=== PATIENT | female | born 1995 | race Caucasian/White ===

== ENCOUNTER 2018-08-20 11:56 | Emergency (ER) | payer SELFPAY ==
[2018-08-20 13:00] LABS: #Eosinphils 0.1 thou/uL (0.0-0.7); #Lymphocytes 0.5 thou/uL (1.20-3.40); #Monocytes 0.5 thou/uL (0.11-0.59); #Neutrophils 9.4 thou/uL (1.40-6.50); %Basophils 0.2 % (0.0-1.0); %Eosinophils 0.6 % (0.0-10.0); %Lymphocytes 4.8 % (21.0-51.0); %Monocytes 4.3 % (0.0-10.0); %Neutrophils 90.2 % (42.0-75.0); Hemoglobin 13.7 g/dL (12.0-16.0); Mean Corpuscular HGB CONC 32.4 g/dL (32.0-36.0); Mean Corpuscular Hemoglobin 28.8 pg (27.0-31.0); Mean Corpuscular Volume 88.9 fL (78.0-98.0); Mean Platelet Volume 7.5 fL (7.4-10.4); Platelet Count 274 thou/uL (130-400); RBC Distribution Width 11.3 % (11.5-14.5); Red Blood Cell (RBC) Count 4.76 mill/uL (4.20-5.40); White Blood Cell (WBC) Count 10.5 thou/uL (4.8-10.8)
[2018-08-20 13:18] LABS: BHCG - Serum Negative (NEGATIVE); Pregs Control Background? CLEAR/WHITE (CLR/WHITE); Pregs Control Bar Appear? YES (CONTROL BAR)
[2018-08-20 13:24] LABS: ALT (SGPT) 46 U/L (8-55); AST (SGOT) 18 U/L (5-34); Albumin 4.1 g/dL (3.5-5.0); Alkaline Phosphatase 86 U/L (40-150); Anion Gap 11 mmol/L (10-20); BUN (Urea Nitrogen) 16 mg/dL (7.0-18.7); Bilirubin, Total 0.3 mg/dL (0.2-1.2); Calc. Creatinine Clearance 0 mL/min (70-130); Calcium 9.3 mg/dL (7.8-10.44); Carbon Dioxide 27 mmol/L (22-29); Chloride 103 mmol/L (98-107); Estimated GFR-MDRD 86; Globulin 3.1 g/dL (2.4-3.5); Glucose 108 mg/dL (70-105); Potassium 3.8 mmol/L (3.5-5.1); Protein, Total 7.2 g/dL (6.0-8.3); Sodium 137 mmol/L (136-145)
[2018-08-20] MEDS ORDERED: Acetaminophen 500 MG TAB ONE (13:56)
[2018-08-20] MEDS ORDERED: Ondansetron ODT 4 MG TAB ONE (13:56)
--- NOTE | 2018-08-20 14:38 | ULT ---
ULTRASOUND PELVIC ULTRASOUND TRANSVAGINAL DOPPLER DUPLEX: Date: 08/20/18 HISTORY: 23-year-old female with pelvic pain and vaginal bleeding. TECHNIQUE: Transabdominal transducer used to evaluate intrapelvic contents using the urinary bladder as an acous tic window. Endovaginal transducer used to visualize intrapelvic contents in greater detail. Color fl ow Doppler and Pulsed Doppler spectral waveform analysis of ovaries. FINDINGS: Uterus: Retroverted. 8 x 4.5 x 6 cm. Endometrial stripe: 1.1 cm (11 mm). Right ovary: 5.3 x 2.6 x 3.2 cm. Left ovary: 3.5 x 1.9 x 2.1 cm. Uterine leiomyoma (fibroid): None. Blood flow in both ovaries: Demonstrated. Ovarian cyst (defined as 2 cm or greater): 3.5 x 2.3 x 2.8 cm right. Free fluid in the cul-de-sac: None. IMPRESSION: 1) 11 mm endometrial stripe at the fundus. 2) A 3.5 cm right ovarian cyst. MANUEL Orellana POS: [facility]
== END 2018-08-20 14:46 | disposition home or self-care (01) ==
LOC: EEVIPCON 11:56 → ERS 11:56
DX: N93.9 Abnormal uterine and vaginal bleeding, unspecified (principal)
CPT/HCPCS: 36415; 76856; 80053; 84703; 85025; 86900; 86901; Q0162

== ENCOUNTER 2018-08-30 12:11 | Emergency (ER) | payer MEDICAID, SELFPAY ==
[2018-08-30 13:32] LABS: #Eosinphils 0.1 thou/uL (0.0-0.7); #Lymphocytes 1.6 thou/uL (1.20-3.40); #Monocytes 0.6 thou/uL (0.11-0.59); #Neutrophils 10.6 thou/uL (1.40-6.50); %Basophils 0.3 % (0.0-1.0); %Eosinophils 0.7 % (0.0-10.0); %Lymphocytes 12.3 % (21.0-51.0); %Monocytes 4.4 % (0.0-10.0); %Neutrophils 82.4 % (42.0-75.0); Hemoglobin 13.3 g/dL (12.0-16.0); Mean Corpuscular HGB CONC 32.1 g/dL (32.0-36.0); Mean Corpuscular Hemoglobin 27.9 pg (27.0-31.0); Mean Corpuscular Volume 86.9 fL (78.0-98.0); Mean Platelet Volume 7.6 fL (7.4-10.4); Platelet Count 394 thou/uL (130-400); RBC Distribution Width 11.3 % (11.5-14.5); Red Blood Cell (RBC) Count 4.78 mill/uL (4.20-5.40); White Blood Cell (WBC) Count 12.8 thou/uL (4.8-10.8)
[2018-08-30 14:27] LABS: BHCG - Serum Negative (NEGATIVE); Pregs Control Background? CLEAR/WHITE (CLR/WHITE); Pregs Control Bar Appear? YES (CONTROL BAR)
[2018-08-30 14:45] LABS: ALT (SGPT) 38 U/L (8-55); AST (SGOT) 19 U/L (5-34); Albumin 4.3 g/dL (3.5-5.0); Alkaline Phosphatase 93 U/L (40-150); Anion Gap 8 mmol/L (10-20); BUN (Urea Nitrogen) 20 mg/dL (7.0-18.7); Bilirubin, Total 0.2 mg/dL (0.2-1.2); Calc. Creatinine Clearance 0 mL/min (70-130); Calcium 9.6 mg/dL (7.8-10.44); Carbon Dioxide 29 mmol/L (22-29); Chloride 106 mmol/L (98-107); Estimated GFR-MDRD 68; Globulin 3.4 g/dL (2.4-3.5); Glucose 81 mg/dL (70-105); Protein, Total 7.7 g/dL (6.0-8.3); Sodium 139 mmol/L (136-145)
[2018-08-30 14:48] LABS: Bilirubin Negative (Negative); Blood, Urine Large (Negative); Clarity CLOUDY (Clear); Glucose, Urine (Dipstick) Negative (Negative); Leukocyte Negative (Negative); Nitrite Negative (Negative); Protein, Urine (Dipstick) 100 mg/dL (Neg-Trace); Specific Gravity, Urine 1.025 (1.002-1.036); Urobilinogen 0.2 mg/dL (0.2-1.0)
[2018-08-30 14:50] LABS: Bacteria/HPF None Seen HPF (None Seen); Hyaline Casts/LPF 0-3 HYALINE CAST LPF (0-3 Hyaline); Pathc Cast-AUWi Flag 0.29 (0-2.49); RBC/HPF GREATER THAN 50-TNTC HPF (0-3); Squamous Epithelial None Seen HPF (0-3); WBC/HPF 0-3 HPF (0-3)
== END 2018-08-30 16:42 | disposition home or self-care (01) ==
LOC: ERS 12:11
DX: N93.9 Abnormal uterine and vaginal bleeding, unspecified (principal)
CPT/HCPCS: 36415; 80053; 81003; 81015; 84703; 85025; 99284

== ENCOUNTER 2019-03-30 09:08 | Outpatient (CLI) | payer MEDICAID ==
--- NOTE | 2019-03-30 14:05 | ULT ---
PELVIC ULTRASOUND INCLUDING TRANSABDOMINAL AND TRANSVAGINAL AND VASCULAR DUPLEX WITH COLOR AND SPECTR AL DOPPLER IMAGING: HISTORY: Abnormal uterine bleeding. FINDINGS: Uterus measures 8.2 x 5.0 x 6.0 cm. Endometrium is 1.3 cm. Right ovary 2.5 x 1.7 x 3.2 cm containing a follicle cyst up to 1.5 cm. The left ovary measures 3.4 x 2.5 x 4.2 cm with a left ovarian slightly septated cyst up to 3.6 x 2.6 x 1.9 cm. Multiple nabothi an cysts in the cervix. No abscess or abnormal fluid collection. No intrauterine mass. IMPRESSION: Left ovarian cyst. Small right ovarian follicle cyst. No evidence for ovarian torsion or other acut e process. POS: [facility]
== END 2019-03-30 09:09 | disposition home or self-care (01) ==
LOC: ULT 09:08
PROVIDERS: ATTEND Nurse Practitioner
DX: N93.8 Other specified abnormal uterine and vaginal bleeding (principal); N83.202 Unspecified ovarian cyst, left side; N83.01 Follicular cyst of right ovary
CPT/HCPCS: 76856

== ENCOUNTER 2021-04-21 12:37 | Emergency (ER) | payer MEDICAID, OTHER ==
[2021-04-21 13:13] LABS: #Eosinphils 0.1 thou/uL (0.0-0.7); #Lymphocytes 1.5 thou/uL (1.20-3.40); #Monocytes 0.5 thou/uL (0.11-0.59); #Neutrophils 10.5 thou/uL (1.40-6.50); %Basophils 0.3 % (0.0-1.0); %Eosinophils 0.4 % (0.0-10.0); %Lymphocytes 12.1 % (21.0-51.0); %Neutrophils 83.2 % (42.0-75.0); Hemoglobin 8.6 g/dL (12.0-16.0); Mean Corpuscular HGB CONC 30.7 g/dL (32.0-36.0); Mean Corpuscular Volume 74.9 fL (78.0-98.0); Mean Platelet Volume 8.2 fL (7.4-10.4); Platelet Count 383 thou/uL (130-400); RBC Distribution Width 14.8 % (11.5-14.5); Red Blood Cell (RBC) Count 3.74 mill/uL (4.20-5.40); White Blood Cell (WBC) Count 12.7 thou/uL (4.8-10.8)
[2021-04-21 13:32] LABS: ALT (SGPT) 20 U/L (8-55); AST (SGOT) 11 U/L (5-34); Albumin 3.7 g/dL (3.5-5.0); Alkaline Phosphatase 63 U/L (40-110); Anion Gap 10 mmol/L (10-20); BUN (Urea Nitrogen) 11 mg/dL (7.0-18.7); Bilirubin, Total 0.3 mg/dL (0.2-1.2); Calc. Creatinine Clearance 0 mL/min (70-130); Calcium 8.8 mg/dL (7.8-10.44); Carbon Dioxide 25 mmol/L (22-29); Chloride 103 mmol/L (98-107); Globulin 2.8 g/dL (2.4-3.5); Glucose 106 mg/dL (70-105); Potassium 3.7 mmol/L (3.5-5.1); Protein, Total 6.5 g/dL (6.0-8.3); Sodium 134 mmol/L (136-145)
[2021-04-21 13:36] LABS: Hypochromia SLIGHT = 6-15 cells (100X) (0-5/hpf); MDiff Complete? YES; Microcytosis SLIGHT = 6-15 cells (100X) (0-5/hpf); Platelet Morphology Comment Appears Adequate; Polychromasia SLIGHT = 2-3 cells (100X) (0-2/hpf)
[2021-04-21] MEDS ORDERED: Ondansetron ODT 4 MG TAB ONE (14:16)
[2021-04-21] MEDS ORDERED: Metoclopramide 10 MG/10 ML UDCUP ONE (16:24)
[2021-04-21] MEDS ORDERED: Ketorolac Tromethamine 30 MG/ML VIAL ONE (16:24)
[2021-04-21] MEDS ORDERED: Metoclopramide HCl 10 MG/2 ML VIAL ONE (16:27)
[2021-04-21 16:29] LABS: MONO NEGATIVE CONTROL ZONE White (Negative) (White); MONO POSITIVE CONTROL Pink Line (Positive) (PINK/RED); Mononucleosis NEGATIVE (NEGATIVE)
[2021-04-21 16:29] LABS: Bilirubin Negative (Negative); Blood, Urine Negative (Negative); Clarity Clear (Clear); Glucose, Urine (Dipstick) Normal (Negative); Ketone, Urine Negative (Negative); Leukocyte Negative Leu/uL (Negative); Nitrite Negative (Negative); Protein, Urine (Dipstick) Negative (Neg-Trace); Specific Gravity, Urine 1.022 (1.002-1.036); Urobilinogen Normal mg/dL (Less than 2)
[2021-04-21 16:32] LABS: Pregnancy Test - Urine (BHCG) Negative (Negative); Pregu Control Background? CLEAR/WHITE (CLR/WHITE); Pregu Control Bar Appear? YES (CONTROL BAR); Specific Gravity 1.022 (1.002-1.036)
[2021-04-21 17:17] LABS: SARS-CoV-2 NAA Rapid Test Not Detected (NotDetected)
[2021-04-21] MEDS ORDERED: Acetaminophen/Codeine 30-300mg Tablet ONE (17:55)
== END 2021-04-21 18:20 | disposition home or self-care (01) ==
LOC: ERS 12:37
DX: B34.9 Viral infection, unspecified (principal); G43.909 Migraine, unspecified, not intractable, without status migrainosus; Z20.822 Contact with and (suspected) exposure to COVID-19
CPT/HCPCS: 0241U; 36415; 71045; 80053; 81003; 81025; 84484; 85025; 86308; 93005; 96365; 96375; J1885; J2765; Q0162

== ENCOUNTER 2021-04-28 20:06 | Emergency (ER) | payer OTHER | END 2021-04-28 21:08 | disposition left against medical advice (07) | LOC: ERS 20:06 | DX: Z53.21 Procedure and treatment not carried out due to patient leaving prior to being seen by health care provider (principal) ==

== ENCOUNTER 2022-05-26 07:29 | Emergency (ER) | payer OTHER, SELFPAY ==
[2022-05-26] MEDS ORDERED: Ketorolac Tromethamine 30 MG/ML VIAL ONE (09:45)
== END 2022-05-26 09:57 | disposition home or self-care (01) ==
LOC: ERS 07:29 → EEVIPCON 07:29 → ERS 09:57
DX: M25.562 Pain in left knee (principal)
CPT/HCPCS: 96372; J1885